=== PATIENT | female | born 1950 | race Asian ===

== ENCOUNTER 2017-03-29 14:19 | Emergency (ER) | payer OTHER ==
[~2017-03-29] VITALS: Ht 170.2 cm; Wt 56.7 kg
[2017-03-29 14:19] VITALS: BP 145/83; PULSE 101; RESP 18; TEMP 98.8; O2SAT 99
[2017-03-29] MEDS ORDERED: BACITRACIN 1 GM OINT TP ONE (15:15)
[2017-03-29 16:22] VITALS: BP 135/82; PULSE 89; RESP 16; TEMP 98.6; O2SAT 99
== END 2017-03-29 16:22 | disposition home or self-care (01) ==
LOC: SED 14:19
DX: S13.4XXA Sprain of ligaments of cervical spine, initial encounter (principal); S00.81XA Abrasion of other part of head, initial encounter; W01.0XXA Fall on same level from slipping, tripping and stumbling without subsequent striking against object, initial encounter; Y93.89 Activity, other specified; Y92.89 Other specified places as the place of occurrence of the external cause; Y99.8 Other external cause status
CPT/HCPCS: 72040-TC; 99284